=== PATIENT | male | born 1950 | race Caucasian/White ===

== ENCOUNTER 2017-09-03 19:58 | Emergency (ER) | payer MEDICARE, BC ==
[2017-09-03 20:13] VITALS: BP 123/75
--- NOTE | 2017-09-03 21:02 | ERNOTE ---
Upper Extremity HPI - Narrative Date of Service: 09/03/17 - General Extremities Pain Location: elbow: left - patient has had pain ,swelling and redness for last 4-5 days Time Seen by Provider: 09/03/17 20:25 Source: patient Exam Limitations: no limitations - Immun/Allergies/Home Medications Immunizations: IMMUNIZATION HX Immunizations Up to Date No: unknown History of Influenza Vaccine Yes Hx Pneumococcal Vaccination Yes Allergies/Adverse Reactions: Allergies Allergy/AdvReac Type Severity Reaction Status Date / Time No Known Allergies Allergy Verified 09/03/17 20:06 Home Medications: HOME MEDICATIONS Cephalexin Monohydrate [Keflex] 500 mg PO QID #40 cap 09/03/17 [Last Taken Unknown] Pravastatin Sodium 40 mg PO DAILY 09/03/17 [Last Taken Unknown] - History of Present Illness Narrative: pain and swelling in left elbow, also c/o chest congestion Occurred: other - ongoing symptoms for 4-5 days Severity: moderate Method of Injury: Reports: other - no injury Loss of Consciousness: Reports: no loss of consciousness Modifying Factors - (Improves): Reports: rest Modifying Factors - (Worsens): Reports: movement Associated Symptoms: Reports: other - redness and swelling Other Injuries: Reports: none Review of Systems - Narrative Narrative: unremarkable - Review of Systems Constitutional: Present: See HPI EYE: Present: no symptoms reported ENT: Present: no symptoms reported Respiratory: Present: cough, other - chest congestion Cardiology: Present: no symptoms reported Gastrointestinal/Abdominal: Present: no symptoms reported Genitourinary: Present: no symptoms reported Musculoskeletal: Present: See HPI, joint pain, joint swelling, other - redness and swelling to elbow and upper forarm Skin: Present: See HPI Neurological: Present: no symptoms reported Endocrine: Present: no symptoms reported Hematologic/Lymphatic: Present: no symptoms reported Psych: Present: no symptoms reported All Other Systems: All systems neg except as marked - Narrative Narrative: unremarkable - Patient's Past Medical History Patient History - Medical: No pertinent hx Patient History - Cardiac/Respiratory: No pertinent hx Patient History - Cancer: No Hx of Cancer Patient History - Surgical Procedures: Other Patient History - Other: None - Family History Family History:: no untoward family reactions to anesthesia, no familial bleeding tendencies, no family history of clotting disorders, no family history of premature - Family History Mother Family History - Medical: No pertinent hx Family History - Cardiac/Respiratory: Hypertension Family History - Cancer: No pertinent family hx - Social History Living Situations: alone Abuse History: No History of abuse Psych History: No pertinent hx Does anyone smoke in the home?: No Smoking Status: Never smoker Have you smoked in the past 12 months: No Do you dip or chew tobacco: No Alcohol Use: rarely Drug Use: none - Immunizations Immunizations Up to Date: No - unknown Hx Pneumococcal Vaccination: Yes History of Influenza Vaccine: Yes Physical Exam - Physical Exam Narrative: patient appears in mild distress General Appearance: Present: mild distress Head Exam: Present: normal inspection, no evidence of injury Eye Exam: Normal inspection: bilateral, PERRL: bilateral, EOMI: bilateral Ears, Nose, Throat: Present: normal ENT inspection Neck: Present: normal inspection, nontender Respiratory: Present: no respiratory distress, no accessory muscle use, chest nontender, rales, rhonchi Cardiovascular/Chest: Present: regular rate, rhythm, no murmur, normal peripheral pulses Peripheral Pulses: N=norm/S=strong/W=weak/B=bound/A=absent: Carotid (R): Normal , Carotid (L): Normal, Radial (R): Normal, Radial (L): Normal, Femoral (R): Normal, Femoral (L): Normal, Dorsalis-pedis (R): Normal, Dorsalis-pedis (L): Normal Gastrointestinal/Abdominal: Present: normal bowel sounds, nontender, nondistended, soft, no organomegaly Back Exam: Present: normal inspection, normal range of motion, no CVA tenderness , no vertebral tenderness Extremity Exam: Present: extremity edema, other - red rasd and swelling to left elbow, olecranon bursa swollen Neurological Exam: Present: alert, oriented, normal mood/affect, no motor/ sensory deficits DTR: N=norm/NB=norm/brisk/A=abs/DD=dull/dimin/HC=hyperactive: Bicep (R): Normal , Bicep (L): Normal, Tricep (R): Normal, Tricep (L): Normal, Knee (R): Normal, Knee (L): Normal, Ankle (R): Normal, Ankle (L): Normal Skin Exam: Present: normal color, warm/dry Lymphatic Exam: Present: no adenopathy ED Progress - Date and Time Seen: Date and Time: 09/03/17 20:58 condition unchanged - Vital Signs Vital Signs: Vital Signs 09/03/17 20:06 Temperature 37.1 C Pulse Rate 89 Respiratory 18 Rate Blood Pressure 123/75 O2 Sat by Pulse 96 Oximetry - X-Ray X-Ray #2 X-Ray: elbow - no acute process Interpretation: Interp. by me - no osseus deformity - Progress/Reassessment Chief Complaint: Upper Extremity Injury/Problem Progress:: Unchanged - Transfer of Care Expected Disposition: Discharge Plan - Plan Plan: to be dismissed Departure Clinical Impression: Cellulitis of multiple sites of upper extremity and shoulder, Bronchitis - Departure Disposition: Home self-care Condition: Fair Instructions: Cellulitis, Adult, [id number] Prescriptions: Cephalexin Monohydrate [Keflex] 500 mg PO QID #40 cap
== END 2017-09-03 21:27 | disposition home or self-care (01) ==
LOC: ER 19:58
DX: L03.114 Cellulitis of left upper limb (principal); J40 Bronchitis, not specified as acute or chronic

== ENCOUNTER 2017-09-06 10:24 | Emergency (ER) | payer MEDICARE, BC ==
[2017-09-06 10:57] VITALS: BP 130/85
--- NOTE | 2017-09-06 11:08 | ERNOTE ---
Integumentary HPI - Narrative Date of Service: 09/06/17 - General Time Seen by Provider: 09/06/17 10:42 - Immun/Allergies/Home Medications Immunizations: IMMUNIZATION HX Immunizations Up to Date Yes History of Influenza Vaccine Yes Hx Pneumococcal Vaccination Yes Allergies/Adverse Reactions: Allergies Allergy/AdvReac Type Severity Reaction Status Date / Time No Known Allergies Allergy Verified 09/06/17 10:41 Home Medications: HOME MEDICATIONS Cephalexin Monohydrate [Keflex] 500 mg PO QID #40 cap 09/03/17 [Last Taken Unknown] Pravastatin Sodium 40 mg PO DAILY 09/03/17 [Last Taken Unknown] Clindamycin HCl [Cleocin HCl] 300 mg PO TID #30 capsule 09/05/17 [Last Taken Unknown] Naproxen [Naprosyn] 500 mg PO BID PRN #60 tab 09/06/17 [Last Taken Unknown] - History of Present Illness Narrative: Pt. comes in with c/o needing to follow up for hic L arm cellulitis and septic olecranon bursitis. Pt. was instructed by the ERP yesterday to come see this provider this morning to reevaluate is infection to make sure that it is not getting worse. Pt. denies any fevers, SOB, CP, NVD, numbness, or tingling. 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 Pt. states that four days ago he was feeling fatigue and malaise and so he came into this ER and was started on an abx but it did not help so he returned yesterday and was switched to different abx and since then his symptoms have improved. Review of Systems - Review of Systems Constitutional: Present: no symptoms reported. Absent: fever, chills, weakness , fatigue, malaise EYE: Present: no symptoms reported ENT: Present: no symptoms reported Respiratory: Present: no symptoms reported. Absent: shortness of breath, cough , wheezing Cardiology: Present: no symptoms reported. Absent: chest pain, palpitations, edema Gastrointestinal/Abdominal: Present: no symptoms reported. Absent: nausea, vomiting, diarrhea, abdominal pain Genitourinary: Present: no symptoms reported. Absent: frequency, decreased urinary output Musculoskeletal: Present: joint pain - L elbow. Absent: back pain, muscle pain , neck pain Skin: Present: change in color - redness L arm. Absent: rash, change in hair/ nails Neurological: Present: no symptoms reported. Absent: headache, dizziness/light- headedness, numbness, tingling All Other Systems: All systems neg except as marked - Patient's Past Medical History Patient History - Medical: Kidney stone Patient History - Cardiac/Respiratory: No pertinent hx Patient History - Cancer: No Hx of Cancer Patient History - Surgical Procedures: Other Patient History - Other: None - Family History Mother Family History - Medical: No pertinent hx Family History - Cardiac/Respiratory: Hypertension Family History - Cancer: No pertinent family hx - Social History Living Situations: home Abuse History: No History of abuse Psych History: No pertinent hx Smoking Status: Never smoker Alcohol Use: none Drug Use: none - Immunizations Immunizations Up to Date: Yes Hx Pneumococcal Vaccination: Yes History of Influenza Vaccine: Yes Physical Exam - Physical Exam General Appearance: Present: wd/wn, alert, no apparent distress Head Exam: Present: normal inspection, no evidence of injury Eye Exam: Normal inspection: bilateral Respiratory: Present: no respiratory distress, normal breath sounds, no accessory muscle use, chest nontender, lungs clear Cardiovascular/Chest: Present: regular rate, rhythm, no murmur, normal peripheral pulses Gastrointestinal/Abdominal: Present: normal bowel sounds, nontender, soft, no organomegaly Back Exam: Present: normal inspection Extremity Exam: Present: normal range of motion, joint swelling - L elbow olecranon bursa, other - L arm redness just proximal to elbow to mid forearm and not circumfrencial 2cm inside of line that is drawn on skin. Tenderness of olecranon bursa, no joint tenderness, full ROM without increase in pain. Neurological Exam: Present: alert, oriented, normal mood/affect, no motor/ sensory deficits Skin Exam: Present: warm/dry, other - redness as described above ED Progress - Date and Time Seen: Date and Time: 09/06/17 11:00 Pt. cellulitis appears much improved and will refer pt. to an orthopedic surgeon that is known personal to this provider, will also start on NSAIDS. - Vital Signs Patient's Vital Signs:: I have reviewed the patient's vital signs. Vital Signs: Vital Signs 09/06/17 09/06/17 10:33 10:54 Temperature 36.5 C Pulse Rate 92 90 Respiratory 16 14 Rate Blood Pressure 146/79 130/85 O2 Sat by Pulse 97 97 Oximetry - Progress/Reassessment Chief Complaint: Cellulitis Departure Clinical Impression: Cellulitis Qualifiers: Site of cellulitis: extremity Site of cellulitis of extremity: upper extremity Laterality: left Qualified Code(s): L03.114 - Cellulitis of left upper limb Bursitis Qualifiers: Bursitis location: elbow Elbow bursitis location: olecranon bursitis Laterality : left Qualified Code(s): M70.22 - Olecranon bursitis, left elbow - Departure Disposition: Home self-care Condition: Good Instructions: Elbow Bursitis, [id number], Cellulitis, Adult, [id number] Additional Instructions: Please call [facility] for an appointment when you get home at [address] [place] [address] [address], [place] . Kristen Hernandez, or Kit.. Please return to an ER if your symptoms worsen or you develop fever. Prescriptions: Naproxen [Naprosyn] 500 mg PO BID PRN #60 tab PRN Reason: Pain
== END 2017-09-06 11:17 | disposition home or self-care (01) ==
LOC: ER 10:24
DX: L03.114 Cellulitis of left upper limb (principal); M70.22 Olecranon bursitis, left elbow; Z87.442 Personal history of urinary calculi